=== PATIENT | male | born 1940 | race Caucasian/White ===

== ENCOUNTER → 2017-12-23 | Outpatient (CLI) | payer MEDICARE, BC ==
--- NOTE | 2017-12-23 14:37 | MR ---
EXAMINATION TYPE: MR knee RT wo con DATE OF EXAM: 12/23/2017 COMPARISON: Outside x-ray 12/03/2017 HISTORY: Right knee pain TECHNIQUE: Multiplanar, multisequence imaging of the right knee is performed without IV contrast. FINDINGS: Quadriceps and patellar tendons are intact and there is no sizable fluid collection within the suprapatellar bursa. Fibrillation patellar cartilage noted. Subtle spurring along the inferior an d superior margins of the patella noted. There is moderate narrowing of the medial compartment the knee joint. No erosive changes. Anterior cruciate, posterior cruciate, lateral collateral and medial collateral ligaments intact. There is loss of articular cartilage of the tibia and femur along the medial compartment knee joint w ith marrow edema likely reactive. There is a complex tear involving the posterior horn the medial men iscus. There is Pseudo Extrusion of the posterior horn. Additional areas of abnormal signal involving the tibial plateau likely are post degenerative. There is a 0.8 x 0.8 x 1.9 cm popliteal fossa cyst There is linear signal in the posterior horn and anterior horn of the lateral meniscus most typical o f myxoid degeneration. IMPRESSION: 1. Osteoarthritis with most marked findings involving the medial compartment knee joint resulting in chondromalacia and reactive marrow edema. 2. Complex tear posterior horn medial meniscus. 3. Tiny popliteal fossa cyst.
== END | disposition home or self-care (01) ==
LOC: RADMRIMAIN 13:33
PROVIDERS: ATTEND Orthopaedic Surgery
DX: S83.231A Complex tear of medial meniscus, current injury, right knee, initial encounter (principal); M17.11 Unilateral primary osteoarthritis, right knee; M94.261 Chondromalacia, right knee

== ENCOUNTER 2018-02-27 06:24 | Day surgery (SDC) | payer MEDICARE, BC ==
[2018-02-24 10:24] VITALS: BMI 29.0
--- NOTE | 2018-02-26 12:46 | HP ---
HISTORY AND PHYSICAL CHIEF COMPLAINT: Right knee pain. HISTORY OF PRESENT ILLNESS: The patient is a 77-year-old retired gentleman who presents with progressive right knee pain and mechanical symptoms for the past several growth. He has tried conservative measures with persistence of his symptoms and limitation. PAST MEDICAL HISTORY: Significant for hypertension, coronary artery disease, basal cell carcinoma. PAST SURGICAL HISTORY: Significant for cardiac stent placement. CURRENT MEDICATIONS: 1. Amlodipine. 2. Aspirin. 3. Atorvastatin. 4. Losartan. 5. Metoprolol. 6. Temazepam. ALLERGIES: He notes allergies to FLUOROQUINOLONE, FLAGYL, and TETRACYCLINE. FAMILY HISTORY: Significant for cancer and hypertension. SOCIAL HISTORY: Negative for current tobacco or alcohol use. REVIEW OF SYSTEMS: Sixteen point review of systems otherwise reviewed and is noncontributory. PHYSICAL EXAMINATION: On examination, the patient is approximately 5 feet 6 inches, 180 pounds of mesomorphic habitus. HEENT exam is nonfocal. Neck is supple. He has painless passive motion of the right hip. Straight leg raise is negative. Active motion right knee -8 to 125 degrees of flexion. He is tender about the medial joint line. He has a trace effusion. Collaterals are stable, Razia's negative, Jacinto's elicits medial pain. His distal neurovascular exam appears intact in the right lower extremity. MRI report 12/23/2017 of the right knee shows a posterior medial meniscal tear along with medial compartment degenerative changes. IMPRESSION: 1. Right knee internal derangement with symptomatic medial meniscal tear. 2. Right knee medial compartment osteoarthrosis. RECOMMENDATIONS: I talked to the patient at length regarding his condition and treatment options. At this point, he is having significant pain and mechanical symptoms that limit him. He opts to proceed with surgery. We will plan to proceed with arthroscopic evaluation with probable partial medial meniscectomy. Risks and benefits were discussed at length in layman's terms. He underwent preoperative cardiac and medical clearance and evaluation. MMODL / IJN: [id number] /
[~2018-02-27 06:24] MED LIST: DEXAMETHASONE SOD PHOSPHATE 10 MG/ML 1 ML VIAL IV ONE; LACTATED RINGERS 1,000 ML IV SCH; MIDAZOLAM 2 MG/2 ML VIAL IV PRN; ONDANSETRON 4 MG/2 ML VIAL IVP ONE; ceFAZolin IN SWFI 2 GM/20 ML SYRINGE IVP ONE
[2018-02-27] MEDS ORDERED: LIDOCAINE 1% 20 ML VIAL (10MG/ML) FOR IV START SQ ONE (07:13)
[2018-02-27] MEDS ORDERED: PROPOFOL 10 MG/ML 20 ML VIAL IV ONE (07:54)
[2018-02-27] MEDS ORDERED: SODIUM CHLORIDE 0.9% 50 ML with ceFAZolin 2,000 MG IV ONE ×2 (07:54)
[2018-02-27] MEDS ORDERED: fentaNYL (PF) 50 MCG/ML 2 ML AMP ONE (07:54)
[2018-02-27] MEDS ORDERED: SUCCINYLCHOLINE CHLORIDE 100 MG/5 ML SYR IV ONE (07:54)
[2018-02-27] MEDS ORDERED: LIDOCAINE 1% INJ 10MG/ML (20 ML MDV) ONE (07:54)
[2018-02-27] MEDS ORDERED: MIDAZOLAM 2 MG/2 ML VIAL ONE (07:54)
[2018-02-27] MEDS ORDERED: EPINEPHrine 4 MG in SODIUM CHLORIDE 0.9% IRRIGATIO 3,000 ML IRRIGATION ONE ×4 (08:00)
[2018-02-27 08:48] VITALS: TEMP 96.9
--- NOTE | 2018-02-27 08:48 | P.OP ---
Date of Procedure: 02/27/18 Preoperative Diagnosis: Right knee symptomatic medial meniscal tear Postoperative Diagnosis: Right knee posterior medial meniscal tear/middle one third lateral meniscal tear /grade 3 chondral injury distal medial femoral condyle/patellofemoral plica Procedure(s) Performed: Right knee arthroscopic partial medial meniscectomy/partial lateral meniscectomy /medial femoral chondrectomy/plica resection Anesthesia: GETA Surgeon: Torito Gutierrez Estimated Blood Loss (ml): 10 Pathology: none sent Condition: stable Disposition: PACU Indications for Procedure: The patient's 77-year-old gentleman who presents with progressive right knee pain and mechanical symptoms despite conservative measures. A discussion of the risks and benefits of operative intervention versus continued conservative measures was made with patient. He opted to proceed with surgery. Operative risks to include infection, neurovascular injury, development of blood clots, possible incomplete resolution of symptoms, possible worsening symptoms and need for subsequent procedures was discussed. Informed consent was obtained. Operative Findings: As below Description of Procedure: The patient was brought to the operating room, and after induction of general anesthesia examined the right knee. Collaterals were stable, Razia was negative, and posterior drawer was negative. The right lower extremity was prepped and draped in normal fashion. A superior lateral portal was made through a 3 mm skin incision superior and lateral to the patella. This was used for outflow. A lateral portal was made through a 5 mm vertical skin incision lateral to the patella tendon above the joint line. Diagnostic arthroscopy was performed. A medial portal was made through a similar incision medial to the patella tendon above the joint line. On inspection medial compartment, he had an oblique tear involving the middle to posterior one third of the medial meniscus in the white-red junction. This was debrided back to stable base with straight baskets and a motorized shaver. The remaining medial meniscus was stable and intact. A corresponding grade 3 chondral injury involving the distal medial portion of the medial femoral condyle was noted. There was a loose chondral fragment that was debrided back to stable base to motorized shaver. On inspection of the notch, the anterior cruciate ligament appeared to be intact. On inspection of the lateral compartment, a tear involving the middle one third of the lateral meniscus in the white-junction was noted. This debrided back to stable base with a motorized shaver. Grade 2- 3 chondral changes were noted involving the posterior lateral femoral condyle. On inspection patellofemoral articulation, there was a large medial patellofemoral plica that appeared to impinge on the medial condyle. This was debrided with a motorized shaver. 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 The gutters were clear debris. The knee was then thoroughly irrigated. The portals were closed with Steri-Strips. A sterile dressing was applied in addition to a compression stocking. Patient was then awoken from general anesthesia and transferred to recovery room in good condition. Blood loss estimated 10 mL. No complications were incurred.
[2018-02-27] MEDS: HYDROmorphone 0.5 MG/0.5 ML SYRINGE IVP PRN ×4 (08:55→09:17)
[2018-02-27] MEDS ORDERED: HYDROcodone/APAP 5-325MG 1 EACH TAB PO ONE (09:59)
[2018-02-27 11:39] VITALS: BP 155/61; PULSE 66; RESP 16
== END 2018-02-27 11:26 | disposition home or self-care (01) ==
LOC: OR 06:24
PROVIDERS: ATTEND Orthopaedic Surgery
DX: S83.241A Other tear of medial meniscus, current injury, right knee, initial encounter (principal); S83.281A Other tear of lateral meniscus, current injury, right knee, initial encounter; S83.31XA Tear of articular cartilage of right knee, current, initial encounter; X58.XXXA Exposure to other specified factors, initial encounter; I10 Essential (primary) hypertension; Z95.5 Presence of coronary angioplasty implant and graft; E78.2 Mixed hyperlipidemia; E66.9 Obesity, unspecified; Z68.29 Body mass index [BMI] 29.0-29.9, adult; G47.33 Obstructive sleep apnea (adult) (pediatric); Z79.82 Long term (current) use of aspirin; Z79.891 Long term (current) use of opiate analgesic; Z79.899 Other long term (current) drug therapy; Z88.1 Allergy status to other antibiotic agents; Z88.8 Allergy status to other drugs, medicaments and biological substances
CPT/HCPCS: 29880; J0171; J2250; J1100; J2405; J2001; J3010; J0690; J0330; J2704; J1170

== ENCOUNTER 2024-01-07 08:59 | Day surgery (SDC) | payer MEDICARE, BC ==
[2024-01-05 08:53] VITALS: BMI 29.5
[2024-01-07] MEDS: IV FLUID CONTINUATION 1,000 ML IV ONE (09:25)
[2024-01-07 09:46] VITALS: TEMP 98.2
[2024-01-07] MEDS ORDERED: PROPOFOL 10 MG/ML 20 ML VIAL IV ONE (10:02)
[2024-01-07] MEDS ORDERED: LIDOCAINE 1% INJ 10MG/ML (20 ML MDV) ONE (10:02)
[2024-01-07] MEDS ORDERED: fentaNYL (PF) 50 MCG/ML 2 ML AMP ONE (10:02)
--- NOTE | 2024-01-07 10:29 | P.PCN ---
Date of Procedure: 01/07/24 Procedure(s) Performed: BRIEF HISTORY: Patient is a 83-year-old pleasant white male scheduled for an elective colonoscopy as a part of prior history of colon polyps. PROCEDURE PERFORMED: Colonoscopy with snare polypectomy PREOPERATIVE DIAGNOSIS: History of colon polyps. IV sedation per Anesthesia. PROCEDURE: After informed consent was obtained, the patient, was brought into the endoscopy unit. IV sedation was administered by Anesthesia under continuous monitoring. Digital rectal examination was normal. Initially the Olympus CF-160 flexible video colonoscope was then inserted in the rectum, gradually advanced into the cecum without any difficulty. Careful examination was performed as the scope was gradually being withdrawn. Ileocecal valve and the appendiceal orifice were visualized and appeared normal. Prep was excellent. Mucosa of the cecum, appeared normal. Descending colon there was a 5 mm polyp removed by cold snare polypectomy. In the transverse colon there was a 5 mm and a 7 mm polyp that was removed by cold snare polypectomy. Rest of the ascending colon, transverse colon, descending colon, sigmoid colon, and rectum appeared normal. In the rectum there was a 3 mm polyp that was removed by cold snare polypectomy. Scattered sigmoid diverticulosis seen. Retroflexion was performed in the rectum and no lesions were seen. The patient tolerated the procedure well. IMPRESSION: 5 mm ascending colon polyp status post cold snare polypectomy 5 mm and 7 mm transverse colon polyp status post polypectomy 3 mm rectal polyp status post polypectomy Scattered sigmoid diverticulosis RECOMMENDATIONS: Findings of this examination were discussed with the patient as well as her family. She was advised to follow-up with the biopsy results. Continue with a high-fiber diet and take fiber supplements on a regular basis.
[2024-01-07 11:02] VITALS: BP 162/51; PULSE 58
== END 2024-01-07 11:11 | disposition home or self-care (01) ==
LOC: ORWHC2ENDO 08:59
PROVIDERS: ATTEND Internal Medicine Gastroenterology
DX: Z12.11 Encounter for screening for malignant neoplasm of colon (principal); D12.2 Benign neoplasm of ascending colon; D12.3 Benign neoplasm of transverse colon; D12.8 Benign neoplasm of rectum; K57.30 Diverticulosis of large intestine without perforation or abscess without bleeding; I10 Essential (primary) hypertension; E78.5 Hyperlipidemia, unspecified; G47.33 Obstructive sleep apnea (adult) (pediatric); K21.9 Gastro-esophageal reflux disease without esophagitis; Z90.49 Acquired absence of other specified parts of digestive tract; Z86.010 Personal history of colon polyps; Z79.899 Other long term (current) drug therapy; Z95.5 Presence of coronary angioplasty implant and graft; Z88.1 Allergy status to other antibiotic agents; Z88.8 Allergy status to other drugs, medicaments and biological substances
CPT/HCPCS: 88305; 45385; J2001; J3010; J2704